=== PATIENT | male | born 1995 | race Caucasian/White ===

== ENCOUNTER 2017-08-23 14:57 | Emergency (ER) | payer MEDICAID ==
[~2017-08-23] VITALS: Ht 188 cm; Wt 120.9 kg
[2017-08-23 15:17] VITALS: BP 131/72
== END 2017-08-23 16:36 | disposition home or self-care (01) ==
LOC: ER 14:57
DX: S80.11XA Contusion of right lower leg, initial encounter (principal); F12.10 Cannabis abuse, uncomplicated; K21.9 Gastro-esophageal reflux disease without esophagitis; Z90.49 Acquired absence of other specified parts of digestive tract; Z56.0 Unemployment, unspecified; V49.9XXA Car occupant (driver) (passenger) injured in unspecified traffic accident, initial encounter; Y93.89 Activity, other specified; Y92.89 Other specified places as the place of occurrence of the external cause; Y99.8 Other external cause status
CPT/HCPCS: 99281

== ENCOUNTER 2017-09-15 11:59 | Emergency (ER) | payer MEDICAID ==
[~2017-09-15] VITALS: Ht 193 cm; Wt 115.0 kg
[2017-09-15 13:04] VITALS: BP 139/94
[2017-09-15] MEDS ORDERED: IBUP-1984 PO (13:14)
[2017-09-15] MEDS ORDERED: PENI500T2 PO (13:23)
== END 2017-09-15 13:40 | disposition home or self-care (01) ==
LOC: ER 11:59
DX: S92.534A Nondisplaced fracture of distal phalanx of right lesser toe(s), initial encounter for closed fracture (principal); K04.7 Periapical abscess without sinus; K21.9 Gastro-esophageal reflux disease without esophagitis; F12.10 Cannabis abuse, uncomplicated; Z90.49 Acquired absence of other specified parts of digestive tract; Z88.1 Allergy status to other antibiotic agents; Z56.0 Unemployment, unspecified; X58.XXXA Exposure to other specified factors, initial encounter; Y93.89 Activity, other specified; Y92.89 Other specified places as the place of occurrence of the external cause; Y99.8 Other external cause status
CPT/HCPCS: 73630; 99284

== ENCOUNTER 2018-04-16 02:47 | Emergency (ER) | payer MEDICAID ==
[~2018-04-16] VITALS: Ht 193 cm; Wt 115.8 kg
[2018-04-16 02:52] VITALS: BP 142/85
== END 2018-04-16 03:52 | disposition left against medical advice (07) ==
LOC: ER 02:48
DX: H92.09 Otalgia, unspecified ear (principal); R68.84 Jaw pain; Z53.21 Procedure and treatment not carried out due to patient leaving prior to being seen by health care provider

== ENCOUNTER 2018-07-02 00:59 | Emergency (ER) | payer MEDICAID ==
[~2018-07-02] VITALS: Ht 182.9 cm; Wt 100.0 kg
[2018-07-02] MEDS ORDERED: LORazepam 2 mg/ml vial IV ONE (01:05)
[2018-07-02] MEDS ORDERED: normal saline 1000ML IV soln IVB ONE (01:05)
[2018-07-02] MEDS ORDERED: cloNIDine 0.1 mg tablet PO ONE (01:05)
--- NOTE | 2018-07-02 02:03 | NUR ---
pt resting, iv infusing w/o difficulty
[2018-07-02 03:15] VITALS: BP 133/82
== END 2018-07-02 03:17 | disposition home or self-care (01) ==
LOC: ER 01:00
DX: T40.8X1A Poisoning by lysergide [LSD], accidental (unintentional), initial encounter (principal); R41.82 Altered mental status, unspecified; K21.9 Gastro-esophageal reflux disease without esophagitis; F12.90 Cannabis use, unspecified, uncomplicated; Z90.49 Acquired absence of other specified parts of digestive tract; Z88.1 Allergy status to other antibiotic agents; Z56.0 Unemployment, unspecified; Y92.89 Other specified places as the place of occurrence of the external cause
CPT/HCPCS: 96374; 99283; J2060; J7030

== ENCOUNTER 2018-07-25 03:09 | Emergency (ER) | payer MEDICAID ==
[~2018-07-25] VITALS: Ht 193 cm; Wt 113.6 kg
[2018-07-25 03:17] VITALS: BP 158/93
[2018-07-25] MEDS ORDERED: LIDOcaine 1% w/epiNEPHrine 1:200,000 30ml vial IM ONE (03:55)
== END 2018-07-25 04:53 | disposition home or self-care (01) ==
LOC: ER 03:09
DX: S01.01XA Laceration without foreign body of scalp, initial encounter (principal); Y04.8XXA Assault by other bodily force, initial encounter; K21.9 Gastro-esophageal reflux disease without esophagitis; F12.90 Cannabis use, unspecified, uncomplicated; Z88.1 Allergy status to other antibiotic agents; Z90.49 Acquired absence of other specified parts of digestive tract; Z56.0 Unemployment, unspecified; Y93.89 Activity, other specified; Y92.89 Other specified places as the place of occurrence of the external cause; Y99.8 Other external cause status
CPT/HCPCS: 12001; 99283; J3490

== ENCOUNTER 2020-11-02 20:31 | Emergency (ER) | payer MEDICAID ==
[~2020-11-02] VITALS: Ht 193 cm; Wt 118.0 kg
[2020-11-02 20:41] VITALS: BP 151/95
== END 2020-11-03 00:32 | disposition home or self-care (01) ==
LOC: ER 20:31
DX: S93.491A Sprain of other ligament of right ankle, initial encounter (principal); K21.9 Gastro-esophageal reflux disease without esophagitis; F12.90 Cannabis use, unspecified, uncomplicated; Z56.0 Unemployment, unspecified; Z72.89 Other problems related to lifestyle; Z90.49 Acquired absence of other specified parts of digestive tract; Z88.1 Allergy status to other antibiotic agents; X50.1XXA Overexertion from prolonged static or awkward postures, initial encounter; Y93.89 Activity, other specified; Y92.89 Other specified places as the place of occurrence of the external cause; Y99.8 Other external cause status
CPT/HCPCS: 73610; 73630; 99284